=== PATIENT | female | born 1965 | race Caucasian/White ===

== ENCOUNTER 2016-06-07 06:15 | Emergency (ER) | payer OTHER ==
--- NOTE | 2016-06-07 08:11 | ED NURSING NOTES ---
Clinical Report - Nurses [facility] [place] [address] 06/07/2016 6:17 [facility]: [id number] Triage time 06:20 Jun 07 2016. Acuity: LEVEL 3. Chief Complaint: ABDOMINAL PAIN. SEPSIS SCREEN: Sepsis Screen: negative. Negative (no infection suspected/documented). Heart rate greater than 90. VIVIEN COMA SCORE: [place] Coma Scale: 15- eyes open spontaneously (4); best verbal response- oriented x 4 (5); best motor response- obeys commands (6). --06:29 Pauly Temple 06:19 06/07/16. BP: 140/80. HR: 100. RR: 20. O2 saturation: 100% on room air. Temp: 98.8 F (oral). Pain level now: 12/09. --06:29 Pauly Temple. Weight: 70.3 kg stated. Height/Length: 66 inches Per Patient. BMI: 25. --06:24 Pauly Temple. Medications Gabapentin Oral. --06:20 Pauly Temple Sertraline HCl Oral. --06:20 Pauly Temple Zofran Oral. --06:20 Pauly Temple Oxycodone-Acetaminophen Oral. --06:21 Pauly Temple LORazepam Oral. --06:21 Pauly Temple. Medication/allergy information source: the patient. --06:29 Pauly Temple. Allergies Clindamycin HCl. Phenergan. --06:21 Pauly Temple. History Arrived by EMS. Historian: patient. Unaccompanied. Primary physician (cecile). Onset. (1 weeks). ( Patient reports abdominal pain for one week that got worse tonight. She reports urinary symptoms. She reports history of kidney stones. She states she had a seizure.). She has had nausea and vomiting. Treatment PRICE ANALYST: See EMS report. EMS treatment PRICE ANALYST verbally communicated and report reviewed. See report. BP: 108 / 64. HR: 84. RR: 14. O2 saturation: 97 %. ( Called EMS when abdominal pain became a 10/10 Hx of fibromyalgia diabetes seizures FS BG 137). PAST MEDICAL HX: Immunizations: up-to-date. The patient is post-menopausal. SOCIAL HX: Never smoker. Regular alcohol use. (drank at midnight). History of drug use: marijuana. No recent travel. No infectious disease exposure. No known contact with a sick individual. ABUSE ASSESSMENT: No report of abuse. SELF HARM ASSESSMENT: A self harm assessment was performed. The patient answered "no" to the question "Have you recently felt down, depressed, or hopeless?", "Have you noticed less interest or pleasure in doing things?", "Do you have thoughts of harming or killing yourself?", "Are you here because you tried to hurt yourself?", "Have you ever tried to hurt yourself before today?", "Have you recently had thoughts about harming or killing others?" and "Do you have any dangerous items in your possession?". NUTRITIONAL RISK ASSESSMENT: The nutritional risk assessment revealed no deficiencies. LEARNING NEEDS ASSESSMENT: The learning needs assessment revealed no barriers. FALL RISK ASSESSMENT: Fall risk assessment completed. Risk factors identified include patient impairment of mobility. Fall interventions initiated. Patient placed on stretcher. Side rails up x1. Brakes on Bed in low position. Call light in reach of patient. Instructed not to get up without assistance. FUNCTIONAL ASSESSMENT: Functional assessment performed: requires assistance with the activities of daily living. SKIN INTEGRITY ASSESSMENT: Skin integrity risk assessment completed. No skin integrity risk identified. --06:29 Pauly Temple Treatment PRICE ANALYST: See EMS report. ( Patient reported to RN that she had seizure while EMS was on scene, EMS report patient was able to speak and answer questions while she reported she was having a seizure. EMS report patient is not postictal). --06:52 Pauly Temple. PROBLEMS: Weakness. Fibromyalgia. Back Pain. Ovarian Cancer. OCD. ADD - Attention Deficit Disorder. Panic Attack. Anxiety Reaction. --06:21 Pauly Temple. ADDITIONAL SURGERIES: no known surgeries. Interventions ID band on patient. To treatment room. --06:29 Pauly Temple. PHYSICAL ASSESSMENT 06:30 06/07/16. Patient gowned. GENERAL / NEURO / PSYCH: Alert. Oriented X 4. Appears in no acute distress. HEENT: Mucous membranes are pink. RESPIRATORY: Respirations not labored. CVS: Cardiac rhythm: sinus tachycardia. GI / : Abdomen soft and nontender. Abdominal tenderness in the suprapubic area. SKIN: Skin is warm and dry. --06:30 Pauly Temple. NURSING PROGRESS NOTES 06:31 06/07/16. Pulse oximeter and NIBP monitor placed on patient; monitor alarms on. Patient gowned. Reassurance given to the patient. Two patient identifiers checked. Call light placed in reach. Side rails up x 1. Bed placed in lowest position. Brakes of bed on. Patient ready for evaluation- chart flagged and ED physician notified. --06:31 Pauly Temple 06:32 06/07/2016 Site #1 started via IV in the left antecubital space with an 20g angiocath, with aseptic technique and good blood return; one attempt. Blood drawn: rainbow set. Labeled in the presence of the patient and sent to the lab. Saline lock flushed with 10 mL saline. --06:32 Pauly Temple Patient ID band checked for patient name and birthdate: patient confirmed. Instructions provided to collect clean catch urine and patient verbalized understanding. Clean catch urine collected with return of yellow-colored clear urine; sample sent to lab for urinalysis, culture and drug screen. Specimen labeled in the presence of the patient. --06:55 Pauly Temple Patient ID band checked for patient name and birthdate: patient confirmed. Blood samples drawn from the left antecubital space peripheral IV site by nurse ; labeled in presence of the patient and sent to lab: rainbow set. Line flushed with 10 mL normal saline post blood draw. --06:56 Pauly Temple Care transferred and report received (from OLLIE Coats). --07:04 Grace Perez, R.NAnabella 07:05 06/07/2016 Started bag #1 1000 mL IV Fluids IV NS (Saline); at 1000 mL/hr over 1 hour(s) via site #1 via IV pump. Allergies verified and confirmed 5 rights. IV patency established. IV site checked: no pain, redness, or swelling. IV flushed thoroughly pre- and post-medication administration. --07:05 Grace Perez R.N. 07:16 06/07/16. BP: 99/68 taken on the right arm, while lying. HR: 95. RR: 16. O2 saturation: 100%. --07:20 Grace Perez R.N. Patient and family informed about reason for wait and about plan of care. ( pt. report nausea is " a little better".). --07:20 Grace Perez R.N. 08:10 06/07/2016 IV Fluids IV NS Discontinued: bag #1 infused. Total amount infused: 1000 mL. IV patency established. IV site checked: no pain, redness, or swelling. IV flushed thoroughly. --11:08 Grace Perez R.N. DISPOSITION / DISCHARGE 08:15 06/07/2016 Site #1 removed upon discharge. Catheter intact. Manual pressure and bandaid applied. --11:08 Grace Perez R.N. 08:15 06/07/16. BP: 112/74. HR: 95. RR: 16. O2 saturation: 100%. Temp: 98.6 F. [place] pain scale: 4/10. --11:09 Grace Perez R.N. 08:15. Departure time: 0815. Condition at departure: stable. No learning barriers present. Discharge instructions provided and reviewed with the patient. Reviewed medication(s) side effects, precautions, dosing and course information. Prescription(s) given to the patient. Reviewed referral to family practice for followup. Patient verbalized understanding. Written instructions provided in German. The patient was discharged home and accompanied by family. She left the Emergency Department ambulatory and via private vehicle. Family member driving. Medication list reviewed and validated. --11:10 Grace Perez R.N. Locked/Released at 06/07/2016 11:10 by Grace Perez R.N.
--- NOTE | 2016-06-07 08:11 | ED ORDER SUMMARY ---
..... Patient: TERRIE BALLARD OrderSheet [facility] VisitID: [id number] [address] [place] [address] 51y, F Registration Date/Time: 06/07/2016 ORDER SHEET Weight: 70.3 kg (stated) Allergies: Clindamycin HCl, Phenergan GENERAL ORDERS: CBC w Diff Urgent (06:50 06/07/2016 HSoule verbal order read back to Jayro ARGUETA) (Ack 6:51 SRedmond) (7:05 SReitz R.N.) CMP Urgent (06:50 06/07/2016 HSoule verbal order read back to Jayro ARGUETA) (Ack 6:51 SRedmond) (7:05 SReitz R.N.) UA-Culture if indicated Urgent (06:50 06/07/2016 HSoule verbal order read back to Jayro ARGUETA) (Ack 6:51 SRedmond) (7:05 SReitz R.N.) Urine Urgent (06:50 06/07/2016 HSoule verbal order read back to Jayro ARGUETA) (Ack 6:51 SRedmond) (7:05 SReitz R.N.) Amylase Urgent (06:50 06/07/2016 HSoule verbal order read back to Jayro ARGUETA) (Ack 6:51 SRedmond) (7:05 SReitz R.N.) Lipase Urgent (06:50 06/07/2016 HSoule verbal order read back to Jayro ARGUETA) (Ack 6:51 SRedmond) (7:05 SReitz R.N.) MEDICATION ORDERS: IV FLUIDS: IV NS with Normal Saline 1 Liter: initial bolus 1000 mL (1000 mL/hr), then none - for X1 (NOW) (06:49 06/07/2016 HSoule verbal order read back to Jayro ARGUETA) (Ack 6:52 HSoule) (7:05 SReitz R.N.) IV Saline Lock (06:50 06/07/2016 HSoule verbal order read back to Jayro ARGUETA) (6:52 HSoule) ORDER SHEET NOTES: [Electronically signed by Grace Perez R.N. (11:06/07/2016)] [Electronically signed by Waldemar Marks MD (10:06/09/2016)] [Electronically locked/signed by Grace Perez R.N. (11:06/07/2016)]
--- NOTE | 2016-06-07 08:11 | ED CLINICAL REPORT ---
Clinical Report - Physicians/Mid Levels [facility] [address] [place] [address] 06/07/2016 6:17 Patient: TERRIE BALLARD Arrived- By private vehicle. Historian- patient. HISTORY OF PRESENT ILLNESS Chief Complaint: ABDOMINAL PAIN. At its maximum, severity described as 10 / 10. When seen in the E.D., severity described as 9 / 10. It is described as stabbing. No radiation. It is described as located in the lower abdomen, in the pelvic area and in the left pelvis. This started about 1 week ago and is still present. It was gradual in onset and has been constant and waxing/waning. The patient has had nausea and vomiting. She has had diarrhea (recently - gone today). REVIEW OF SYSTEMS Last normal menstrual period- 6 months ago. The patient is post-menopausal. No chills, fever, sweats, calf pain or chest pain. No cough, difficulty breathing, pedal edema, palpitations or black stools. No bloody stools or constipation. The patient has had frequency and mild pain during urination. All systems otherwise negative, except as recorded above. SOCIAL HISTORY Never smoker. Regular alcohol use. History of drug use: marijuana. FAMILY HISTORY Denies family medical history. ADDITIONAL NOTES The nursing notes have been reviewed. PHYSICAL EXAM Vital Signs: 06/07/2016 06:19 BP: 140/80. HR: 100. RR: 20. O2 saturation: 100%. Temp: 98.8 F. Pain level now: 10/10. Have been reviewed. Eyes: Pupils equal, round and reactive to light. ENT: Pharynx normal. Neck: Neck supple. CVS: Normal heart rate and rhythm. Heart sounds normal. Respiratory: No respiratory distress. Breath sounds normal. Abdomen: Soft. Mild tenderness in the suprapubic area. Bowel sounds normal. No organomegaly. No mass. Back: Normal inspection. No CVA tenderness. Skin: Skin warm and dry. Normal skin color. Normal skin turgor. Extremities: Extremities exhibit normal ROM. No calf tenderness. No lower extremity edema. LABS, X-RAYS, AND EKG Laboratory Tests: UA-Culture if indicated: (CORINA: 06/07/2016 00:01) ( [facility] Final results Test Result Flag Units (Reference) URINE COLOR YELLOW URINE APPEARANCE CLEAR URINE GLUCOSE NEGATIVE (NEGATIVE) URINE BILIRUBIN NEGATIVE (NEGATIVE) URINE KETONE TRACE (NEGATIVE) URINE SPECIFIC GRAVITY 1.025 (1.010-1.030) URINE PH 6.0 (5.0-8.0) URINE PROTEIN NEGATIVE (NEGATIVE) URINE UROBILINOGEN 0.2 EU/dL (0.2-1.0) URINE NITRITE NEGATIVE (NEGATIVE) URINE BLOOD NEGATIVE (NEGATIVE) URINE LEUK ESTERASE TRACE (NEGATIVE) URINE RBC 0-1 rbc/hpf (0-1) URINE WBC 0-1 wbc/hpf (0-1) URINE EPITHELIAL CELLS 0-1 EPI/hpf (0-5) URINE BACTERIA FEW (1+) (NONE SEEN) URINE COMMENT CULTURE INDICATED URINE CULTURES ARE SET-UP BASED ON THE FOLLOWING CRITERIA:POSITIVE NITRITEPOSITIVE LEUKOCYTE ESTERASEGREATER THAN 10 WHITE BLOOD CELLSMODERATE (2+) OR GREATER BACTERIA Urine: (CORINA: 06/07/2016 00:01) ( [facility] 06/07[facility]2016 07:07) Final results Test Result Flag Units (Reference) URINE NEGATIVE CBC w Diff: (CORINA: 06/07/2016 06:30) ( [facility] 06/07/2016 07:03) Final results Test Result Flag Units (Reference) WHITE BLOOD COUNT 8.4 K/uL (4.5-11.5) RED BLOOD COUNT 5.24 H M/uL (4.00-5.20) HEMOGLOBIN 15.5 gm/dL (12.0-16.0) HEMATOCRIT 46.4 H % (36.0-46.0) MEAN CELL VOLUME 89 fL (80-100) MEAN CORPUSCULAR HGB 30 pg (26-34) MEAN CORPUSCULAR HGB CONC 33 g/dL (31-37) RED CELL DISTRIBUTION WIDTH 13.4 % (11.6-14.8) PLATELET COUNT 205 K/uL (150-400) NEUTROPHIL % 77.3 H % (50-75) LYMPH % 19.9 L % (25-40) MONO % 2.2 L % (3-14) EOSINOPHIL % 0.3 % (0-4) BASOPHIL % 0.3 % (0-2) . PROGRESS AND PROCEDURES Course of Care: Patient is stable. Patient/family counseled. Old medical records reviewed. Disposition: Discharged. Condition: stable. CLINICAL IMPRESSION Acute urinary tract infection with cystitis. INSTRUCTIONS Drink plenty of fluids. Warnings: Further evaluation is necessary. GENERAL WARNINGS: Return or contact your physician immediately if your condition worsens or changes unexpectedly, if not improving as expected, or if other problems arise. Prescription Medications: Macrobid 100 mg: Take 1 capsule orally every 12 hours for 7 days. No refills. Substitution is permissible. Pyridium 200 mg: take 1 orally every 8 hours as needed for urinary problems. Dispense six (6). No refills. Substitution is permissible. Follow-up: Follow up with your doctor in three days if not better. Understanding of the discharge instructions verbalized by patient. (Electronically signed by Waldemar Marks MD 06/09/2016 10:01)
--- NOTE | 2016-06-07 08:11 | ED CLINICAL REPORT ---
Clinical Report - Physicians/Mid Levels [facility] [address] [place] [address] 06/07/2016 6:17 Patient: TERRIE BALLARD Arrived- By private vehicle. Historian- patient. HISTORY OF PRESENT ILLNESS Chief Complaint: ABDOMINAL PAIN. At its maximum, severity described as 10 / 10. When seen in the E.D., severity described as 9 / 10. It is described as stabbing. No radiation. It is described as located in the lower abdomen, in the pelvic area and in the left pelvis. This started about 1 week ago and is still present. It was gradual in onset and has been constant and waxing/waning. The patient has had nausea and vomiting. She has had diarrhea (recently - gone today). REVIEW OF SYSTEMS Last normal menstrual period- 6 months ago. The patient is post-menopausal. No chills, fever, sweats, calf pain or chest pain. No cough, difficulty breathing, pedal edema, palpitations or black stools. No bloody stools or constipation. The patient has had frequency and mild pain during urination. All systems otherwise negative, except as recorded above. SOCIAL HISTORY Never smoker. Regular alcohol use. History of drug use: marijuana. FAMILY HISTORY Denies family medical history. ADDITIONAL NOTES The nursing notes have been reviewed. PHYSICAL EXAM Vital Signs: 06/07/2016 06:19 BP: 140/80. HR: 100. RR: 20. O2 saturation: 100%. Temp: 98.8 F. Pain level now: 10/10. Have been reviewed. Eyes: Pupils equal, round and reactive to light. ENT: Pharynx normal. Neck: Neck supple. CVS: Normal heart rate and rhythm. Heart sounds normal. Respiratory: No respiratory distress. Breath sounds normal. Abdomen: Soft. Mild tenderness in the suprapubic area. Bowel sounds normal. No organomegaly. No mass. Back: Normal inspection. No CVA tenderness. Skin: Skin warm and dry. Normal skin color. Normal skin turgor. Extremities: Extremities exhibit normal ROM. No calf tenderness. No lower extremity edema. LABS, X-RAYS, AND EKG Laboratory Tests: UA-Culture if indicated: (CORINA: 06/07/2016 00:01) ( [facility] Final results Test Result Flag Units (Reference) URINE COLOR YELLOW URINE APPEARANCE CLEAR URINE GLUCOSE NEGATIVE (NEGATIVE) URINE BILIRUBIN NEGATIVE (NEGATIVE) URINE KETONE TRACE (NEGATIVE) URINE SPECIFIC GRAVITY 1.025 (1.010-1.030) URINE PH 6.0 (5.0-8.0) URINE PROTEIN NEGATIVE (NEGATIVE) URINE UROBILINOGEN 0.2 EU/dL (0.2-1.0) URINE NITRITE NEGATIVE (NEGATIVE) URINE BLOOD NEGATIVE (NEGATIVE) URINE LEUK ESTERASE TRACE (NEGATIVE) URINE RBC 0-1 rbc/hpf (0-1) URINE WBC 0-1 wbc/hpf (0-1) URINE EPITHELIAL CELLS 0-1 EPI/hpf (0-5) URINE BACTERIA FEW (1+) (NONE SEEN) URINE COMMENT CULTURE INDICATED URINE CULTURES ARE SET-UP BASED ON THE FOLLOWING CRITERIA:POSITIVE NITRITEPOSITIVE LEUKOCYTE ESTERASEGREATER THAN 10 WHITE BLOOD CELLSMODERATE (2+) OR GREATER BACTERIA Urine: (CORINA: 06/07/2016 00:01) ( [facility]) Final results Test Result Flag Units (Reference) URINE NEGATIVE CBC w Diff: (CORINA: 06/07/2016 06:30) ( [facility] 06/[facility]) Final results Test Result Flag Units (Reference) WHITE BLOOD COUNT 8.4 K/uL (4.5-11.5) RED BLOOD COUNT 5.24 H M/uL (4.00-5.20) HEMOGLOBIN 15.5 gm/dL (12.0-16.0) HEMATOCRIT 46.4 H % (36.0-46.0) MEAN CELL VOLUME 89 fL (80-100) MEAN CORPUSCULAR HGB 30 pg (26-34) MEAN CORPUSCULAR HGB CONC 33 g/dL (31-37) RED CELL DISTRIBUTION WIDTH 13.4 % (11.6-14.8) PLATELET COUNT 205 K/uL (150-400) NEUTROPHIL % 77.3 H % (50-75) LYMPH % 19.9 L % (25-40) MONO % 2.2 L % (3-14) EOSINOPHIL % 0.3 % (0-4) BASOPHIL % 0.3 % (0-2) . PROGRESS AND PROCEDURES Course of Care: Patient is stable. Patient/family counseled. Old medical records reviewed. Disposition: Discharged. Condition: stable. CLINICAL IMPRESSION Acute urinary tract infection with cystitis. INSTRUCTIONS Drink plenty of fluids. Warnings: Further evaluation is necessary. GENERAL WARNINGS: Return or contact your physician immediately if your condition worsens or changes unexpectedly, if not improving as expected, or if other problems arise. Prescription Medications: Macrobid 100 mg: Take 1 capsule orally every 12 hours for 7 days. No refills. Substitution is permissible. Pyridium 200 mg: take 1 orally every 8 hours as needed for urinary problems. Dispense six (6). No refills. Substitution is permissible. Follow-up: Follow up with your doctor in three days if not better. Understanding of the discharge instructions verbalized by patient. (Electronically signed by Waldemar Marks MD 06/09/2016 10:01)
--- NOTE | 2016-06-07 08:11 | ED ORDER SUMMARY ---
..... Patient: TERRIE BALLARD OrderSheet [facility] VisitID: [id number] [address] [place] [address] 51y, F Registration Date/Time: 06/07/2016 ORDER SHEET Weight: 70.3 kg (stated) Allergies: Clindamycin HCl, Phenergan GENERAL ORDERS: CBC w Diff Urgent (06:50 06/07/2016 HSoule verbal order read back to Jayro ARGUETA) (Ack 6:51 SRedmond) (7:05 SReitz R.N.) CMP Urgent (06:50 06/07/2016 HSoule verbal order read back to Jayro ARGUETA) (Ack 6:51 SRedmond) (7:05 SReitz R.N.) UA-Culture if indicated Urgent (06:50 06/07/2016 HSoule verbal order read back to Jayro ARGUETA) (Ack 6:51 SRedmond) (7:05 SReitz R.N.) Urine Urgent (06:50 06/07/2016 HSoule verbal order read back to Jayro ARGUETA) (Ack 6:51 SRedmond) (7:05 SReitz R.N.) Amylase Urgent (06:50 06/07/2016 HSoule verbal order read back to Jayro ARGUETA) (Ack 6:51 SRedmond) (7:05 SReitz R.N.) Lipase Urgent (06:50 06/07/2016 HSoule verbal order read back to Jayro ARGUETA) (Ack 6:51 SRedmond) (7:05 SReitz R.N.) MEDICATION ORDERS: IV FLUIDS: IV NS with Normal Saline 1 Liter: initial bolus 1000 mL (1000 mL/hr), then none - for X1 (NOW) (06:49 06/07/2016 HSoule verbal order read back to Jayro ARGUETA) (Ack 6:52 HSoule) (7:05 SReitz R.N.) IV Saline Lock (06:50 06/07/2016 HSoule verbal order read back to Jayro ARGUETA) (6:52 HSoule) ORDER SHEET NOTES: [Electronically signed by Grace Perez R.N. (11:06/07/2016)] [Electronically signed by Waldemar Marks MD (10:06/09/2016)] [Electronically locked/signed by Grace Perez R.N. (11:06/07/2016)]
--- NOTE | 2016-06-09 10:02 | ED MED RECONCILIATION SUMMARY ---
Patient: CRISTINA BALLARDECCA Franklyn Medication Reconciliation Report [facility] VisitID: [id number] [address] [place] [address] 51y, F Registration Date/Time: 06/07/2016 Weight: 70.3 kg Height/Length: 66 in. BMI: 25.0 ALLERGIES: Clindamycin HCl, Phenergan The patient's Home Medications are listed below: THE FOLLOWING MEDICATIONS NEED TO BE RECONCILED: Gabapentin Oral LORazepam Oral Oxycodone-Acetaminophen Oral Sertraline HCl Oral Zofran Oral The source(s) of the original Home Medication information: patient The following Medications were given to the patient in the Emergency Department: IV NS IV Fluids bolus 0, then 1000 mL/hr, administered: 06/07/2016 7:05:00 AM The following Medications were prescribed to the patient: Macrobid 100 mg: Take 1 capsule orally every 12 hours for 7 days. No refills. Substitution is permissible. -- Waldemar Marks MD Pyridium 200 mg: take 1 orally every 8 hours as needed for urinary problems. Dispense six (6). No refills. Substitution is permissible. -- Waldemar Marks MD
--- NOTE | 2016-06-09 10:02 | ED MAR SUMMARY ---
..... Medication Administration Record [facility] [address] [place] [address] Patient: TERRIE BALLARD Visit ID: [id number] 51y, F Weight: 70.3 kg Height/Length: 66 in BMI: 25 ALLERGIES: Clindamycin HCl, Phenergan Start 07:05 06/07/2016 Grace Perez RRaine, Stop 08:10 06/07/2016 Grace Perez R.N. Medication Administered: IV NS (SALINE), Dose: IV Fluids over 1 hour(s), Rate: 1000 mL/hr, Dispensed: 1000 mL bag, Site: #1 left . Medication Ordered: IV NS with Normal Saline 1 Liter: initial bolus 1000 mL (1000 mL/hr), then none - for X1 (NOW).
--- NOTE | 2016-06-09 10:02 | ED DISCHARGE INSTRUCTIONS ---
Patient: TERRIE BALLARD General Instructions [facility] VisitID: [id number] [address] [place] [address] 51y, F Registration Date/Time: 06/07/2016 Acute urinary tract infection with cystitis. INSTRUCTIONS Drink plenty of fluids. Warnings: Further evaluation is necessary. GENERAL WARNINGS: Return or contact your physician immediately if your condition worsens or changes unexpectedly, if not improving as expected, or if other problems arise. Prescription Medications: Macrobid 100 mg: Take 1 capsule orally every 12 hours for 7 days. No refills. Substitution is permissible. Pyridium 200 mg: take 1 orally every 8 hours as needed for urinary problems. Dispense six (6). No refills. Substitution is permissible. Follow-up: Follow up with your doctor in three days if not better. Understanding of the discharge instructions verbalized by patient. ADDITIONAL INFORMATION Bladder Infection,Female (Adult) A bladder infection ("cystitis" or "UTI") usually causes a constant urge to urinate and a burning when passing urine. Urine may be cloudy, smelly or dark. There may be pain in the lower abdomen. A bladder infection occurs when bacteria from the vaginal area enter the bladder opening (urethra). This can occur from sexual intercourse, wearing tight clothing, dehydration and other factors. Home Care: Drink lots of fluids (at least 6-8 glasses a day, unless you must restrict fluids for other medical reasons). This will force the medicine into your urinary system and flush the bacteria out of your body. Avoid sexual intercourse until your symptoms are gone. Avoid caffeine, alcohol and spicy foods. These can irritate the bladder. A bladder infection is treated with antibiotics. You may also be given Pyridium (generic = phenazopyridine) to reduce the burning sensation. This medicine will cause your urine to become a bright orange color. The orange urine may stain clothing. You may wear a pad or panty-liner to protect clothing. Preventing Future Infections: Always wipe from front to back after a bowel movement. Keep the genital area clean and dry. Drink plenty of fluids each day to avoid dehydration. Both sexual partners should wash before intercourse. Urinate right after intercourse to flush out the bladder. Wear cotton underwear and cotton-lined panty hose; avoid tight-fitting pants. If you are on control pills and are having frequent bladder infections, discuss with your doctor. Follow Up: Return to this facility or see your doctor if ALL symptoms are not gone after three days of treatment. Get Prompt Medical Attention if any of the following occur: Fever of 100.4F (38C) or higher, or as directed by your healthcare provider No improvement by the third day of treatment Increasing back or abdominal pain Repeated vomiting; unable to keep medicine down Weakness, dizziness or fainting Vaginal discharge Pain, redness or swelling in the labia (outer vaginal area) Nitrofurantoin, Nitrofurantoin, Macrocrystalline Oral capsule What is this medicine? NITROFURANTOIN (kashmirfiliberto collins sabrina VIET toyn) is an antibiotic. It is used to treat urinary tract infections. How should I use this medicine? Take this medicine by mouth with a glass of water. Follow the directions on the prescription label. Take this medicine with food or milk. Take your doses at regular intervals. Do not take your medicine more often than directed. Do not stop taking except on your doctor's advice. Talk to your mortgage protection specialist regarding the use of this medicine in children. While this drug may be prescribed for selected conditions, precautions do apply. What side effects may I notice from receiving this medicine? Side effects that you should report to your doctor or health career resource specialist as soon as possible: allergic reactions like skin rash or hives, swelling of the face, lips, or tongue chest pain cough difficulty breathing dizziness, drowsiness fever or infection joint aches or pains pale or blue-tinted skin redness, blistering, peeling or loosening of the skin, including inside the mouth tingling, burning, pain, or numbness in hands or feet unusual bleeding or bruising unusually weak or tired yellowing of eyes or skin Side effects that usually do not require medical attention (report to your doctor or health career resource specialist if they continue or are bothersome): dark urine diarrhea headache loss of appetite nausea or vomiting temporary hair loss What may interact with this medicine? antacids containing magnesium trisilicate probenecid quinolone antibiotics like ciprofloxacin, lomefloxacin, norfloxacin and ofloxacin sulfinpyrazone What if I miss a dose? If you miss a dose, take it as soon as you can. If it is almost time for your next dose, take only that dose. Do not take double or extra doses. Where should I keep my medicine? Keep out of the reach of children. Store at room temperature between 15 and 30 degrees C (59 and 86 degrees F). Protect from light. Throw away any unused medicine after the expiration date. What should I tell my health care provider before I take this medicine? They need to know if you have any of these conditions: anemia diabetes amroplk-0-yomhgwkzf dehydrogenase deficiency kidney disease liver disease lung disease other chronic illness an unusual or allergic reaction to nitrofurantoin, other antibiotics, other medicines, foods, dyes or preservatives or trying to get breast-feeding What should I watch for while using this medicine? Tell your doctor or health career resource specialist if your symptoms do not improve or if you get new symptoms. Drink several glasses of water a day. If you are taking this medicine for a long time, visit your doctor for regular checks on your progress. If you are diabetic, you may get a false positive result for sugar in your urine with certain brands of urine tests. Check with your doctor. Phenazopyridine Hydrochloride Oral tablet What is this medicine? PHENAZOPYRIDINE (fen az oh PEER i ming) is a pain reliever. It is used to stop the pain, burning, or discomfort caused by infection or irritation of the urinary tract. This medicine is not an antibiotic. It will not cure a urinary tract infection. How should I use this medicine? Take this medicine by mouth with a glass of water. Follow the directions on the prescription label. Take after meals. Take your doses at regular intervals. Do not take your medicine more often than directed. Do not skip doses or stop your medicine early even if you feel better. Do not stop taking except on your doctor's advice. Talk to your mortgage protection specialist regarding the use of this medicine in children. Special care may be needed. What side effects may I notice from receiving this medicine? Side effects that you should report to your doctor or health career resource specialist as soon as possible: allergic reactions like skin rash, itching or hives, swelling of the face, lips, or tongue blue or purple color of the skin difficulty breathing fever less urine unusual bleeding, bruising unusual tired, weak vomiting yellowing of the eyes or skin Side effects that usually do not require medical attention (report to your doctor or health career resource specialist if they continue or are bothersome): dark urine headache stomach upset What may interact with this medicine? Interactions are not expected. What if I miss a dose? If you miss a dose, take it as soon as you can. If it is almost time for your next dose, take only that dose. Do not take double or extra doses. Where should I keep my medicine? Keep out of the reach of children. Store at room temperature between 15 and 30 degrees C (59 and 86 degrees F). Protect from light and moisture. Throw away any unused medicine after the expiration date. What should I tell my health care provider before I take this medicine? They need to know if you have any of these conditions: tsyhext-9-kihvthxay dehydrogenase (G6PD) deficiency kidney disease an unusual or allergic reaction to phenazopyridine, other medicines, foods, dyes, or preservatives or trying to get breast-feeding What should I watch for while using this medicine? Tell your doctor or health career resource specialist if your symptoms do not improve or if they get worse. This medicine colors body fluids red. This effect is harmless and will go away after you are done taking the medicine. It will change urine to an dark orange or red color. The red color may stain clothing. Soft contact lenses may become permanently stained. It is best not to wear soft contact lenses while taking this medicine. If you are diabetic you may get a false positive result for sugar in your urine. Talk to your health care provider. You have been given the following additional information: Bladder Infection, Female (Adult) Nitrofurantoin, Nitrofurantoin, Macrocrystalline Oral capsule Phenazopyridine Hydrochloride Oral tablet (Electronically signed by Waldemar Marks MD 06/09/2016 10:01)
--- NOTE | 2016-06-09 10:02 | ED DISCHARGE INSTRUCTIONS ---
Patient: TERRIE BALLARD General Instructions [facility] VisitID: [id number] [address] [place] [address] 51y, F Registration Date/Time: 06/07/2016 Acute urinary tract infection with cystitis. INSTRUCTIONS Drink plenty of fluids. Warnings: Further evaluation is necessary. GENERAL WARNINGS: Return or contact your physician immediately if your condition worsens or changes unexpectedly, if not improving as expected, or if other problems arise. Prescription Medications: Macrobid 100 mg: Take 1 capsule orally every 12 hours for 7 days. No refills. Substitution is permissible. Pyridium 200 mg: take 1 orally every 8 hours as needed for urinary problems. Dispense six (6). No refills. Substitution is permissible. Follow-up: Follow up with your doctor in three days if not better. Understanding of the discharge instructions verbalized by patient. ADDITIONAL INFORMATION Bladder Infection,Female (Adult) A bladder infection ("cystitis" or "UTI") usually causes a constant urge to urinate and a burning when passing urine. Urine may be cloudy, smelly or dark. There may be pain in the lower abdomen. A bladder infection occurs when bacteria from the vaginal area enter the bladder opening (urethra). This can occur from sexual intercourse, wearing tight clothing, dehydration and other factors. Home Care: Drink lots of fluids (at least 6-8 glasses a day, unless you must restrict fluids for other medical reasons). This will force the medicine into your urinary system and flush the bacteria out of your body. Avoid sexual intercourse until your symptoms are gone. Avoid caffeine, alcohol and spicy foods. These can irritate the bladder. A bladder infection is treated with antibiotics. You may also be given Pyridium (generic = phenazopyridine) to reduce the burning sensation. This medicine will cause your urine to become a bright orange color. The orange urine may stain clothing. You may wear a pad or panty-liner to protect clothing. Preventing Future Infections: Always wipe from front to back after a bowel movement. Keep the genital area clean and dry. Drink plenty of fluids each day to avoid dehydration. Both sexual partners should wash before intercourse. Urinate right after intercourse to flush out the bladder. Wear cotton underwear and cotton-lined panty hose; avoid tight-fitting pants. If you are on control pills and are having frequent bladder infections, discuss with your doctor. Follow Up: Return to this facility or see your doctor if ALL symptoms are not gone after three days of treatment. Get Prompt Medical Attention if any of the following occur: Fever of 100.4F (38C) or higher, or as directed by your healthcare provider No improvement by the third day of treatment Increasing back or abdominal pain Repeated vomiting; unable to keep medicine down Weakness, dizziness or fainting Vaginal discharge Pain, redness or swelling in the labia (outer vaginal area) Nitrofurantoin, Nitrofurantoin, Macrocrystalline Oral capsule What is this medicine? NITROFURANTOIN (kashmirfiliberto collins sabrina VIET toyn) is an antibiotic. It is used to treat urinary tract infections. How should I use this medicine? Take this medicine by mouth with a glass of water. Follow the directions on the prescription label. Take this medicine with food or milk. Take your doses at regular intervals. Do not take your medicine more often than directed. Do not stop taking except on your doctor's advice. Talk to your glove turner and former regarding the use of this medicine in children. While this drug may be prescribed for selected conditions, precautions do apply. What side effects may I notice from receiving this medicine? Side effects that you should report to your doctor or health caretaker as soon as possible: allergic reactions like skin rash or hives, swelling of the face, lips, or tongue chest pain cough difficulty breathing dizziness, drowsiness fever or infection joint aches or pains pale or blue-tinted skin redness, blistering, peeling or loosening of the skin, including inside the mouth tingling, burning, pain, or numbness in hands or feet unusual bleeding or bruising unusually weak or tired yellowing of eyes or skin Side effects that usually do not require medical attention (report to your doctor or health caretaker if they continue or are bothersome): dark urine diarrhea headache loss of appetite nausea or vomiting temporary hair loss What may interact with this medicine? antacids containing magnesium trisilicate probenecid quinolone antibiotics like ciprofloxacin, lomefloxacin, norfloxacin and ofloxacin sulfinpyrazone What if I miss a dose? If you miss a dose, take it as soon as you can. If it is almost time for your next dose, take only that dose. Do not take double or extra doses. Where should I keep my medicine? Keep out of the reach of children. Store at room temperature between 15 and 30 degrees C (59 and 86 degrees F). Protect from light. Throw away any unused medicine after the expiration date. What should I tell my health care provider before I take this medicine? They need to know if you have any of these conditions: anemia diabetes dzywhpu-9-ozfenjphb dehydrogenase deficiency kidney disease liver disease lung disease other chronic illness an unusual or allergic reaction to nitrofurantoin, other antibiotics, other medicines, foods, dyes or preservatives or trying to get breast-feeding What should I watch for while using this medicine? Tell your doctor or health caretaker if your symptoms do not improve or if you get new symptoms. Drink several glasses of water a day. If you are taking this medicine for a long time, visit your doctor for regular checks on your progress. If you are diabetic, you may get a false positive result for sugar in your urine with certain brands of urine tests. Check with your doctor. Phenazopyridine Hydrochloride Oral tablet What is this medicine? PHENAZOPYRIDINE (fen az oh PEER i ming) is a pain reliever. It is used to stop the pain, burning, or discomfort caused by infection or irritation of the urinary tract. This medicine is not an antibiotic. It will not cure a urinary tract infection. How should I use this medicine? Take this medicine by mouth with a glass of water. Follow the directions on the prescription label. Take after meals. Take your doses at regular intervals. Do not take your medicine more often than directed. Do not skip doses or stop your medicine early even if you feel better. Do not stop taking except on your doctor's advice. Talk to your glove turner and former regarding the use of this medicine in children. Special care may be needed. What side effects may I notice from receiving this medicine? Side effects that you should report to your doctor or health caretaker as soon as possible: allergic reactions like skin rash, itching or hives, swelling of the face, lips, or tongue blue or purple color of the skin difficulty breathing fever less urine unusual bleeding, bruising unusual tired, weak vomiting yellowing of the eyes or skin Side effects that usually do not require medical attention (report to your doctor or health caretaker if they continue or are bothersome): dark urine headache stomach upset What may interact with this medicine? Interactions are not expected. What if I miss a dose? If you miss a dose, take it as soon as you can. If it is almost time for your next dose, take only that dose. Do not take double or extra doses. Where should I keep my medicine? Keep out of the reach of children. Store at room temperature between 15 and 30 degrees C (59 and 86 degrees F). Protect from light and moisture. Throw away any unused medicine after the expiration date. What should I tell my health care provider before I take this medicine? They need to know if you have any of these conditions: ryafpfg-9-vokukjima dehydrogenase (G6PD) deficiency kidney disease an unusual or allergic reaction to phenazopyridine, other medicines, foods, dyes, or preservatives or trying to get breast-feeding What should I watch for while using this medicine? Tell your doctor or health caretaker if your symptoms do not improve or if they get worse. This medicine colors body fluids red. This effect is harmless and will go away after you are done taking the medicine. It will change urine to an dark orange or red color. The red color may stain clothing. Soft contact lenses may become permanently stained. It is best not to wear soft contact lenses while taking this medicine. If you are diabetic you may get a false positive result for sugar in your urine. Talk to your health care provider. You have been given the following additional information: Bladder Infection, Female (Adult) Nitrofurantoin, Nitrofurantoin, Macrocrystalline Oral capsule Phenazopyridine Hydrochloride Oral tablet (Electronically signed by Waldemar Marks MD 06/09/2016 10:01)
--- NOTE | 2016-06-09 10:02 | ED MAR SUMMARY ---
..... Medication Administration Record [facility] [address] [place] [address] Patient: TERRIE BALLARD Visit ID: [id number] 51y, F Weight: 70.3 kg Height/Length: 66 in BMI: 25 ALLERGIES: Clindamycin HCl, Phenergan Start 07:05 06/07/2016 Grace Perez RRaine, Stop 08:10 06/07/2016 Grace Perez R.N. Medication Administered: IV NS (SALINE), Dose: IV Fluids over 1 hour(s), Rate: 1000 mL/hr, Dispensed: 1000 mL bag, Site: #1 left . Medication Ordered: IV NS with Normal Saline 1 Liter: initial bolus 1000 mL (1000 mL/hr), then none - for X1 (NOW).
--- NOTE | 2016-06-09 10:02 | ED MED RECONCILIATION SUMMARY ---
Patient: CRISTINA BALLARDECCA Franklyn Medication Reconciliation Report [facility] VisitID: [id number] [address] [place] [address] 51y, F Registration Date/Time: 06/07/2016 Weight: 70.3 kg Height/Length: 66 in. BMI: 25.0 ALLERGIES: Clindamycin HCl, Phenergan The patient's Home Medications are listed below: THE FOLLOWING MEDICATIONS NEED TO BE RECONCILED: Gabapentin Oral LORazepam Oral Oxycodone-Acetaminophen Oral Sertraline HCl Oral Zofran Oral The source(s) of the original Home Medication information: patient The following Medications were given to the patient in the Emergency Department: IV NS IV Fluids bolus 0, then 1000 mL/hr, administered: 06/07/2016 7:05:00 AM The following Medications were prescribed to the patient: Macrobid 100 mg: Take 1 capsule orally every 12 hours for 7 days. No refills. Substitution is permissible. -- Waldemar Marks MD Pyridium 200 mg: take 1 orally every 8 hours as needed for urinary problems. Dispense six (6). No refills. Substitution is permissible. -- Waldemar Marks MD
== END 2016-06-07 08:15 | disposition home or self-care (01) ==
LOC: ED SRH 06:15
DX: N30.90 Cystitis, unspecified without hematuria (principal); Z88.8 Allergy status to other drugs, medicaments and biological substances
CPT/HCPCS: 90004; 90100; 90469; 92235; 92530; 93070; 95059